=== PATIENT | female | born 1995 | race Caucasian/White ===

== ENCOUNTER 2023-06-02 13:16 | Emergency (ER) | payer BC, SELFPAY ==
--- NOTE | 2023-06-02 13:19 | ED.URI ---
HPI - URI/Sore Throat General Chief Complaint: Upper Respiratory Infection Stated Complaint: sorethroat Time Seen by Provider: 06/02/23 13:18 Source: patient Mode of arrival: ambulatory Limitations: no limitations History of Present Illness HPI Narrative: Mag is a 28-year-old female patient presenting to the clinic today with complaints of sore throat, headache, and chills over the last 2-3 days. She reports her nephew's at home are positive for strep. She is concerned that she may have a strep infection. Recently underwent trigeminal nerve surgery 4 weeks ago MD elicited complaint: sore throat Related Data Home Medications Medication Instructions Recorded Confirmed hydroxyzine HCl 25 mg tablet 25 mg PO DAILY 06/02/23 06/02/23 levetiracetam 500 mg tablet 500 mg PO DAILY 06/02/23 06/02/23 pregabalin 150 mg capsule 150 mg PO DAILY 06/02/23 06/02/23 quetiapine 100 mg tablet 100 mg PO DAILY 06/02/23 06/02/23 Allergies Allergy/AdvReac Type Severity Reaction Status Date / Time acetaminophen [From Percocet] Allergy Unknown Verified 06/02/23 13:44 amoxicillin [From Augmentin] Allergy Unknown Verified 06/02/23 13:44 clavulanic acid Allergy Unknown Verified 06/02/23 13:44 [From Augmentin] ondansetron [From Zofran] Allergy Unknown Verified 06/02/23 13:44 oxycodone [From Percocet] Allergy Unknown Verified 06/02/23 13:44 Review of Systems Review of Systems: Pertinent positives per HPI. Patient denies any fever, chills, rash, headache, visual changes, dizziness, cough, shortness of breath, chest pain, palpitations, nausea, vomiting, diarrhea, constipation, abdominal pain, or any urinary issues. PMFSH Comments At the time of my signature, I reviewed and agree with the nursing past medical, surgical, social, and family history. There is no relevant family history pertinent to the patient complaint. Exam Narrative: General: Well-developed, well nourished, in no apparent distress Head: Normocephalic, atraumatic Eyes: Pupils equally round and reactive to light bilaterally, EOM intact, sclera and conjunctive clear, no discharge, lids normal Ears: TMs intact and clear, ear canals clear, no drainage, grossly hearing normal. Nose: Nares patent, no discharge, no inflammation, no sinus tenderness. Mouth: Oral pharynx red with bilateral tonsillar enlargement without lesions or masses, good dentition, MMM. Neck: Supple, trachea midline, enlargement of anterior cervical nodes, no thyroid masses or goiter palpable. Cardio: Regular rate and rhythm, s1 and s2 normal, no murmur appreciated. Resp: Clear to auscultation bilaterally, no rhonchi, rales, wheezing or rubs Course Course Emergency Course: Portions of this record may have been created with voice recognition software. Level of Care: Express Care Visit Vital Signs Vital signs: Vital signs reviewed MDM - URI/Sore Throat MDM Narrative Medical decision making narrative: At the time of visit patient is resting comfortably on the exam table. Strep screen was obtained and was negative in the clinic today. I feel that patient has had direct exposure to strep and she has recently had trigeminal nerve brain surgery that I will go ahead and treat her for strep pharyngitis. Supportive measures were discussed with the patient she voiced understanding of discharge instructions agrees to treatment plan. Differential Diagnosis Differential diagnosis: Likely upper respiratory infection, otitis media, sinusitis, viral infection, bronchitis, influenza, pharyngitis and other (COVID) Discharge Plan Discharge Clinical Impression: Exposure to group A Streptococcus, Nausea Pharyngitis Qualifiers: Pharyngitis/tonsillitis etiology: unspecified etiology Qualified Code(s): J02.9 - Acute pharyngitis, unspecified Patient Disposition: Home, Self-Care Condition: Stable Instructions: Antibiotic Form, Pharyngitis (ED) Additional Instructions: Take prescription medicat
[2023-06-02 13:52] VITALS: BP 119/76; PULSE 114; RESP 18; TEMP 36.6; O2SAT 100
== END 2023-06-02 14:11 | disposition home or self-care (01) ==
PROVIDERS: Emergency Provider Nurse Practitioner Family
DX: J02.9 Acute pharyngitis, unspecified (principal); R11.0 Nausea; Z20.818 Contact with and (suspected) exposure to other bacterial communicable diseases
CPT/HCPCS: 87081; 87880; 99213; G0463

== ENCOUNTER 2023-08-20 17:33 | Emergency (ER) | payer BC, SELFPAY ==
--- NOTE | 2023-08-20 17:40 | ED.FEMALEGU ---
HPI - Female Genitourinary General Chief complaint: Urogenital-Female Stated complaint: uti symptoms Time Seen by Provider: 08/20/23 17:40 Source: patient Mode of arrival: ambulatory Limitations: no limitations History of Present Illness HPI Narrative: Mag is a 28-year-old female patient presenting to the clinic today with complaints of possible UTI. She reports chills, flank pain, low back pain, frequency, and burning with urination x 3 days. No fever or body aches. She denies any concern for any sexually transmitted infections. Related Data Home Medications Medication Instructions Recorded Confirmed hydroxyzine HCl 25 mg tablet 25 mg PO DAILY 06/02/23 08/20/23 pregabalin 300 mg capsule 300 mg PO DAILY 08/20/23 08/20/23 Allergies Allergy/AdvReac Type Severity Reaction Status Date / Time acetaminophen [From Percocet] Allergy Unknown Verified 08/20/23 17:46 amoxicillin [From Augmentin] Allergy Unknown Verified 08/20/23 17:46 clavulanic acid Allergy Unknown Verified 08/20/23 17:46 [From Augmentin] ondansetron [From Zofran] Allergy Unknown Verified 08/20/23 17:46 oxycodone [From Percocet] Allergy Unknown Verified 08/20/23 17:46 Review of Systems Review of Systems: Pertinent positives per HPI. Patient denies any fever, rash, headache, visual changes, dizziness, cough, runny nose, sore throat, shortness of breath, chest pain, palpitations, nausea, vomiting, diarrhea, constipation, abdominal pain. PMFSH Comments At the time of my signature, I reviewed and agree with the nursing past medical, surgical, social, and family history. There is no relevant family history pertinent to the patient complaint. Exam Narrative: General: Well-developed, well nourished, in no apparent distress. Head: Normocephalic, atraumatic. Cardio: Regular rate and rhythm, s1 and s2 normal, no murmur appreciated. Resp: Clear to auscultation bilaterally, no rhonchi, rales, wheezing or rubs. Abdomen: Soft, pliable, bowel sounds present in all quadrants, non-tender to palpation, no organomegly, positive right CVAT tenderness. Course Course Emergency Course: Portions of this record may have been created with voice recognition software. Level of Care: Express Care Visit Vital Signs Vital signs: Vital signs reviewed MDM - Female Genitourinary MDM Narrative Medical decision making narrative: At the time of visit patient is resting comfortably on the exam table. Urinalysis shows 1+ leukocyte, trace of ketone, 1+ protein, and trace of blood. Believe patient may have early pyelonephritis. Prescription for Bactrim DS 1 tab twice daily x7 days was prescribed and supportive measures were discussed with the patient she voiced understanding of the discharge instructions and agrees to treatment plan. Differential Diagnosis Differential diagnosis: Likely urinary tract infection and cystitis Discharge Plan Discharge Clinical Impression: Pyelonephritis Patient Disposition: Home, Self-Care Condition: Stable Instructions: Antibiotic Form, Urinary Tract Infection in Women (ED) Additional Instructions: I suspect you have early pyelonephritis(kidney infection) Take Bactrim as prescribed May take Azo as needed for pain Increase fluids and stay well hydrated Wipe front to back. May use wet wipes. Avoid tub baths If sexually active- pee before and after intercourse. Wear cotton panties Avoid tight clothing up against the genitals Follow up with your PCP in 1 week if symptoms persist. Prescriptions: New sulfamethoxazole-trimethoprim [Bactrim DS] 800-160 mg tablet 1 tablet PO Q12H 7 Days Qty: 14 0RF No Action hydroxyzine HCl 25 mg tablet 25 mg PO DAILY pregabalin 300 mg capsule 300 mg PO DAILY Follow-up/Referrals: Flory,DAWOOD Benavidez Jr. [Primary Care Provider] - Time of Disposition: 17:59 Quality NIHSS Nursing Documentation ED NIHSS nursing documentation: reviewed/ag
[2023-08-20 17:48] VITALS: BP 133/80; PULSE 88; RESP 18; TEMP 36.6; O2SAT 100
[2023-08-20 17:49] VITALS: BP 133/80; PULSE 88; RESP 18; TEMP 36.6; O2SAT 100
== END 2023-08-20 18:01 | disposition home or self-care (01) ==
PROVIDERS: Emergency Provider Nurse Practitioner Family; PCP Physician Assistant
DX: N12 Tubulo-interstitial nephritis, not specified as acute or chronic (principal)
CPT/HCPCS: 81003; 87086; 87088; 99213; G0463

== ENCOUNTER 2023-11-21 18:44 | Emergency (ER) | payer BC, SELFPAY ==
--- NOTE | 2023-11-21 19:05 | ED.URI ---
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 She reports her whole family is positive for strep throat. MD elicited complaint: cough and sore throat Related Data Home Medications Medication Instructions Recorded Confirmed hydroxyzine HCl 25 mg tablet 25 mg PO DAILY 06/02/23 08/20/23 pregabalin 300 mg capsule 300 mg PO DAILY 08/20/23 08/20/23 duloxetine 30 mg capsule,delayed mg PO 11/21/23 release hydroxyzine HCl 25 mg tablet mg 11/21/23 trazodone 50 mg tablet mg 11/21/23 Allergies Allergy/AdvReac Type Severity Reaction Status Date / Time acetaminophen [From Percocet] Allergy Unknown Verified 11/21/23 19:43 amoxicillin [From Augmentin] Allergy Unknown Verified 11/21/23 19:43 clavulanic acid Allergy Unknown Verified 11/21/23 19:43 [From Augmentin] ondansetron [From Zofran] Allergy Unknown Verified 11/21/23 19:43 oxycodone [From Percocet] Allergy Unknown Verified 11/21/23 19:43 Review of Systems Review of Systems: CONSTITUTIONAL: Reports malaise, chills, sweats EYES: Denies visual changes, redness, or discharge. ENT: Denies rhinorrhea, congestion, sinus pain, otalgia. Reports sore throat. CARDIOVASCULAR: Denies chest pain, palpitations, or edema. RESPIRATORY: Denies cough. Denies dyspnea. GASTROINTESTINAL: Denies abdominal pain, vomiting, diarrhea. Reports nausea SKIN: Denies rash or itching. MUSCULOSKELETAL: Reports myalgia. NEUROLOGIC: Reports headache. All systems reviewed & are unremarkable except as noted in HPI and below PMFSH Comments At time of signature, agree with nursing past medical, surgical, social and family history. There is no relevant family history pertinent to the presenting complaint Exam Narrative: GENERAL: Well-appearing, well-nourished, and in no acute distress. HEAD: Normocephalic EYES: PERRLA, conjunctivae clear ENT: Nares clear. Mucous membranes moist. TM pearly shirley with sharp light reflex bilaterally; no tragal tenderness. Oropharynx erythematous without lesions. Tonsils mildly enlarged and without exudate, no drooling, no hoarseness, no trismus, uvula midline. NECK: Supple. No lymphadenopathy CHEST: Clear to auscultation, breath sounds equal. No wheezing, rhonchi, rales, or stridor. No respiratory distress, speaks in full sentences. HEART: Regular rate and rhythm. No murmur heard. SKIN: Warm, dry, no rash. NEURO: Alert and oriented x3. PSYCH: Normal mood and affect Course Course Emergency Course: Patient is aware of diagnosis, understands and agrees to treatment plan. Anticipatory guidance given. Patient agrees to follow-up as directed and is aware of reasons to seek care at the emergency department. Portions of this record may have been created with voice recognition software Level of Care: Express Care Visit Vital Signs Vital signs: Reviewed. MDM - URI/Sore Throat MDM Narrative Medical decision making narrative: Differential diagnosis considered: [place] virus, strep pharyngitis, allergic rhinitis, upper respiratory tract infection, sinusitis, rhinosinusitis, nasopharyngitis. viral pharyngitis, otitis media, otitis externa, pneumonia, bronchitis, viral cough syndrome, viral syndrome, and influenza. Exam findings show no acute concerns or changes; patient is non-toxic appearing and is in no distress. Patient is appropriate for outpatient treatment and follow-up. Lab Data Attestation: I reviewed the patient's lab results. Critical Care Time Critical Care Time Critical Care Time: No Discharge Plan Discharge Clinical Impression: Pharyngitis, Exposure to strep throat Patient Disposition: Home, Self-Care
[2023-11-21 19:12] VITALS: BP 117/71; PULSE 98; RESP 16; TEMP 36.8; O2SAT 100
== END 2023-11-21 19:51 | disposition home or self-care (01) ==
PROVIDERS: Emergency Provider Nurse Practitioner; PCP Physician Assistant
DX: J02.9 Acute pharyngitis, unspecified (principal); Z20.818 Contact with and (suspected) exposure to other bacterial communicable diseases
CPT/HCPCS: 87081; 87880; 99213; G0463